=== PATIENT | female | born 1950 | race Caucasian/White ===

== ENCOUNTER 2017-05-07 08:08 | Inpatient (IN) | payer MEDICARE ==
[~2017-05-07] VITALS: Ht 152.4 cm; Wt 98.4 kg
--- NOTE | 2017-05-07 08:35 | NUR ---
PT TAKEN STRAIGHT BACK TO ER ROOM12 FOR SOB. @ BEDSIDE. IV ESTABLISHED, LABS DRAWN.
--- NOTE | 2017-05-07 08:40 | NUR ---
EKG MACHINE NOT WORKING. RT @ BEDSIDE. RT WILL BRING BACK ANOTHER EKG MACHINE.
[2017-05-07 09:20] LABS: ALBUMIN 5.2 g/dL (3.2-5.0); ALKALINE PHOSPHATASE 126 u/l (38-126); ANION GAP 17 (6-22 (CALC)); BILIRUBIN, TOTAL 0.8 mg/dL (0.0-1.4); BUN 12 mg/dL (8-23); BUN/CREATININE RATIO 15 (12-20 (CALC)); CALCIUM 10.8 mg/dL (8.4-10.2); CARBON DIOXIDE 29 mmol/l (22-30); CHLORIDE 102 mmol/l (95-108); CREATININE 0.8 mg/dL (0.5-1.0); GFR > 60 ML/MIN (>=60 (CALC)); GFR FOR AFR.AMER. > 60 ML/MIN (>=60 (CALC)); GLUCOSE 146 mg/dL (82-115); POTASSIUM 3.8 mmol/l (3.5-5.1); SGOT/AST 42 u/l (9-36); SGPT/ALT 44 u/l (11-66); SODIUM 144 mmol/l (137-146); TOTAL PROTEIN 8.9 g/dL (6.3-8.2)
[2017-05-07 09:32] LABS: MYOGLOBIN 31 ng/mL (0 - 62)
--- NOTE | 2017-05-07 09:39 | NUR ---
PT RESTING IN ER ROOM W/ @ BEDSIDE. BREATHING IN EVEN & UNLABORED. MONITORING BP.
--- NOTE | 2017-05-07 10:35 | NUR ---
MD @ BEDSIDE REVIEWING TESTING RESULTS. NO NEEDS/COMPLAINTS AT THIS TIME. CONTINUE TO MONITOR V/S
[2017-05-07 10:56] LABS: HEMATOCRIT 38.6 % (37.0-47.0); HEMOGLOBIN 13.2 g/dl (12.0-16.0); IMMATURE GRANULOCYTES 0.3 % (0.0-1.0); MEAN CORPUSCULAR HGB 29.1 pG CALC (26.0-32.0); MEAN CORPUSCULAR HGB CONC 34.2 g/L CALC (32.0-36.0); NEUT# 3.07 thou/uL (2.00-7.15); RED BLOOD COUNT 4.54 mill/uL (4.20-5.60); RED CELL DISTRI WIDTH 13.3 % (11.5-15.5)
--- NOTE | 2017-05-07 11:36 | NUR ---
PT WAITING ON ADMIT ORDERS AND ROOM ASSIGNMENT
[2017-05-07] MEDS ORDERED: OS-CAL 500500 M1 PO (11:39)
[2017-05-07] MEDS ORDERED: MULTIVITAMI1 PO (11:40)
[2017-05-07] MEDS ORDERED: FLEXERIL5 M1 PO (11:41)
[2017-05-07] MEDS ORDERED: TRAZODONE50 MG PO ×2 (11:42→11:43)
[2017-05-07] MEDS ORDERED: SM MELATONIN5 MG PO (11:42)
[2017-05-07] MEDS ORDERED: COREG25 MG PO (11:44)
[2017-05-07] MEDS ORDERED: MECLIZINE25 MG PO (11:45)
[2017-05-07] MEDS ORDERED: BUSPIRONE HCL5 MG PO (11:45)
[2017-05-07] MEDS ORDERED: ULTRAM50 M1 PO (11:46)
[2017-05-07] MEDS ORDERED: PROMETHAZINE12.5 MG PO (11:46)
[2017-05-07] MEDS ORDERED: PROPRANOLOL80 M1 PO (11:48)
[2017-05-07] MEDS ORDERED: VICTOZA18 MG/3 ML SC (11:49)
[2017-05-07] MEDS ORDERED: LEVEMIR FL100 UNIT/M SC (11:49)
--- NOTE | 2017-05-07 12:01 | NUR ---
ROSAAR PRINTED TO [id number].
--- NOTE | 2017-05-07 12:46 | NUR ---
Admission Note Report Given to: MJ Transported by: Wheelchair X Stretcher Transported with: X Nurse Transporter X Patent IV O2 X Baseball Pitcher
--- NOTE | 2017-05-07 13:02 | NUR ---
PT. ARRIVED TO FLOOR VIA STRETCHER ACCOMPANIED BY ED NURSE, PT.AMBULATED TO STANDING SCALE AND TO BED. PT.ORIENTED TO ROOM,CALL SYSTEM, LIGHTS, TV, CALLING FOR ASSISTANCE. V/S BEING ASSESSED. WILL F/UP WITH MEDICAITONS ORDERED AND FULL ASSESSMENT.
[2017-05-07 13:05] VITALS: BP 144/64
[2017-05-07] MEDS ORDERED: PEPCID20 MG PO (13:08)
[2017-05-07] MEDS ORDERED: LOSARTAN POT100 MG PO (13:08)
[2017-05-07] MEDS ORDERED: PAROXETINE25 MG PO (13:09)
[2017-05-07] MEDS ORDERED: REQUIP0.5 MG PO (13:10)
--- NOTE | 2017-05-07 13:10 | NUR ---
PT TRANSFERRED TO [facility] 274 VIA STRETCHER WITH TELE AND W/OUT INCIDENT. PT IN STABLE CONDITION. RN @ BEDSIDE.
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
[2017-05-07 15:41] VITALS: BP 137/64
--- NOTE | 2017-05-07 17:35 | NUR ---
PT.CALLED TO REPORT THAT SHE HAD VOMITED AND NEEDED ANOTHER EMESIS BAG. UPON ENTERING ROOM I FOUND AN EMESIS BAG IN THE TRASH CAN WITH 800CC OF YELLOW EMESIS WITH CHUNKS OF FOOD. I DISCUSSED THIS W/GEORGE WHO IMMEDIATELY PLACED PT. ON NPO DIET/ALL FLUIDS WERE REMOVED FROM ROOM AND PT.WAS INSTRUCTED NOT TO EAT OR DRINK. IS AT BS AND CALL LIGHT IS W/IN REACH
--- NOTE | 2017-05-07 17:53 | NUR ---
PT C/O NAUSEA. MEDICATED WITH PHENERGAN 12.5 MG IV. WILL CONTINUE TO MONITOR.
--- NOTE | 2017-05-07 19:00 | NUR ---
RECEIVED CHANGE OF SHIFT REPORT FROM SHANEL HIGH. PATIENT LYING IN BED AND APPEARS NOT TO BE IN ANY APPARENT ACUTE DISTRESS OR DISCOMFORT. PATIENT DENIES PAIN. WILL CONTINUE TO MONITOR.
[2017-05-07 19:20] VITALS: BP 161/82
--- NOTE | 2017-05-07 21:00 | NUR ---
PATIENT STATES THAT HER STOMACH IS FEELING MUCH BETTER. MEDICATION IS EFFECTIVE.
[2017-05-07 23:35] VITALS: BP 146/84
[2017-05-08] VITALS (7 sets, daily range): BP systolic 147–183; BP diastolic 74–89
--- NOTE | 2017-05-08 | NUR ---
PATIENT LYING QUIETLY IN BED AND APPEARS TO BE ASLEEP. NO APPARENT ACUTE DISTRESS OR DISCOMFORT NOTED.
--- NOTE | 2017-05-08 04:00 | NUR ---
NO APPARENT ACUTE CHANGES NOTED IN PT'S CONDITION.
[2017-05-08 05:41] LABS: HEMATOCRIT 36.5 % (37.0-47.0); HEMOGLOBIN 12.2 g/dl (12.0-16.0); IMMATURE GRANULOCYTES 0.2 % (0.0-1.0); MEAN CELL VOLUME 85.9 fL CALC (80.0-100.0); MEAN CORPUSCULAR HGB 28.7 pG CALC (26.0-32.0); MEAN CORPUSCULAR HGB CONC 33.4 g/L CALC (32.0-36.0); NEUT# 3.04 thou/uL (2.00-7.15); RED BLOOD COUNT 4.25 mill/uL (4.20-5.60); RED CELL DISTRI WIDTH 13.3 % (11.5-15.5)
[2017-05-08 06:05] LABS: ANION GAP 16 (6-22 (CALC)); BUN 13 mg/dL (8-23); BUN/CREATININE RATIO 16 (12-20 (CALC)); CALCIUM 10.3 mg/dL (8.4-10.2); CARBON DIOXIDE 26 mmol/l (22-30); CHLORIDE 105 mmol/l (95-108); CREATININE 0.8 mg/dL (0.5-1.0); GFR > 60 ML/MIN (>=60 (CALC)); GFR FOR AFR.AMER. > 60 ML/MIN (>=60 (CALC)); GLUCOSE 125 mg/dL (82-115); MAGNESIUM 1.7 mg/dL (1.6-2.3); POTASSIUM 4.1 mmol/l (3.5-5.1); SODIUM 143 mmol/l (137-146)
--- NOTE | 2017-05-08 07:00 | NUR ---
SHIFT CHANGE REPORT FROM TWAN, PT AWAKE ALERT AND ORIENTED, C/O MILD HEADACHE AT THIS TIME AND REQUESTING ORAL INTAKE, ADVISED MD WILL BE CONTACTED FOR MEAL STATUS CHANGE, IVF NFUSING. MARILEE NOTIFIED OF PT'S CONCERNS AND ADDRESSED.
--- NOTE | 2017-05-08 15:19 | NUR ---
PT INFORMED SHE WONT BE GOING HOME TODAY STATED SHE WAS TOLD EARLIER BY MD, HAS MANY QUESTIONS TO WHY SHE WAS TOLD DIFFERENTLY FROM WHAT SHE IS TOLD NOW, SPOUSE ALSO DISPLEASED TO HEAR THE NEW CHANGE AND WANTS TO LEAVE AMA IF NEEDS BE. ADVISED WILL HAVE CARETAKER ADDRESS SITUATION DANAE.
[2017-05-08] MEDS ORDERED: AMLODIPINE BESYL5 MG PO (15:48)
--- NOTE | 2017-05-08 17:53 | NUR ---
Discharge instructions given. Patient verbalizes understanding of same. Discharged in good condition via Wheelchair to Home with spouse. All belongings sent with pt.
== END 2017-05-08 17:48 | disposition home or self-care (01) | DRG 305 ==
LOC: ED 08:08 → ED-I 11:26 → ED 12:01 → MS2 12:02
PROVIDERS: Emergency Medicine; Nurse Practitioner Family; ADMIT Internal Medicine; ATTEND Internal Medicine
DX: I16.0 Hypertensive urgency (principal); E11.9 Type 2 diabetes mellitus without complications; I10 Essential (primary) hypertension; F41.1 Generalized anxiety disorder; G25.81 Restless legs syndrome; Z79.4 Long term (current) use of insulin; Z91.14 Patient's other noncompliance with medication regimen

== ENCOUNTER 2018-06-04 05:57 | Emergency (ER) | payer MEDICARE ==
[~2018-06-04] VITALS: Ht 167.6 cm; Wt 70.4 kg
[~2018-06-04 05:57] MED LIST: AMITRIPTYLIN25 MG PO; AMITRIPTYLIN50 MG PO; AMLODIPINE BESYL5 MG PO; AMLODIPINE5 MG PO; BUSPIRONE HCL5 MG PO; BUSPIRONE10 MG PO; CENTRUM SILVER1 TA1 PO; COREG25 MG PO; CYCLOBENZAPR10 MG PO; FLEXERIL5 M1 PO; GLIMEPIRIDE4 MG PO; INDERAL LA120 M1 PO; LEVEMIR FL100 UNIT/M SC; LEXAPRO20 MG PO; LOSARTAN POT100 MG PO; MECLIZINE25 MG PO; MELATONIN10 M3 PO; MULTIVITAMI1 PO; OMEPRAZOLE PO; OS-CAL 500500 M1 PO; PAROXETINE25 MG PO; PAXIL PO; PEPCID20 MG PO; PIOGLITAZONE HC15 MG PO; PROMETHAZINE12.5 MG PO; PROPRANOLOL80 M1 PO; REQUIP PO; REQUIP0.5 MG PO; ROPINIROLE1 MG PO; SM MELATONIN5 MG PO; TRAZODONE50 MG PO; TRESIBA FL100 UNIT/M IJ; TRESIBA FL200 UNIT/M IJ; TRESIBA FL200 UNIT/M SC; ULTRAM50 M1 PO; VICTOZA18 MG/3 ML SC; ZETIA10 MG PO; [UNRECOGNIZED DRUG - OTHER] PO
[2018-06-04 07:00] LABS: HEMATOCRIT 32.6 % (37.0-47.0); HEMOGLOBIN 10.9 g/dl (12.0-16.0); IMMATURE GRANULOCYTES 0.5 % (0.0-5.0); MEAN CELL VOLUME 83.4 fL CALC (80.0-100.0); MEAN CORPUSCULAR HGB 27.9 pG CALC (26.0-32.0); MEAN CORPUSCULAR HGB CONC 33.4 g/L CALC (32.0-36.0); NEUT# 9.73 thou/uL (2.00-7.15); RED BLOOD COUNT 3.91 mill/uL (4.20-5.60); RED CELL DISTRI WIDTH 13.2 % (11.5-15.5)
[2018-06-04 07:06] LABS: ALBUMIN 4.3 g/dL (3.2-5.0); ALKALINE PHOSPHATASE 191 u/l (38-126); ANION GAP 18 (6-22 (CALC)); BILIRUBIN, TOTAL 0.6 mg/dL (0.0-1.4); BUN 11 mg/dL (8-23); BUN/CREATININE RATIO 13 (12-20 (CALC)); CARBON DIOXIDE 26 mmol/l (22-30); CHLORIDE 90 mmol/l (95-108); CREATININE 0.8 mg/dL (0.5-1.0); GFR > 60 ML/MIN (>=60 (CALC)); GFR FOR AFR.AMER. > 60 ML/MIN (>=60 (CALC)); POTASSIUM 4.6 mmol/l (3.5-5.1); SGOT/AST 90 u/l (9-36); SODIUM 129 mmol/l (137-146); TOTAL PROTEIN 7.6 g/dL (6.3-8.2)
[2018-06-04 10:16] VITALS: BP 155/64
== END 2018-06-04 10:14 | disposition short-term general hospital (02) ==
LOC: ED 05:57
PROVIDERS: Family Medicine
DX: I26.99 Other pulmonary embolism without acute cor pulmonale (principal); R05 Cough; R09.81 Nasal congestion
CPT/HCPCS: J0131; J1650; J3475; Q9967

== ENCOUNTER 2018-08-17 09:00 | Outpatient (RCR) | payer MEDICARE ==
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
[~2018-08-17 09:00] MED LIST changes: +BUSPAR10 MG PO; +CLONAZEPAM0.5 M1 PO; +FUROSEMIDE40 MG PO; +OLMESARTAN MEDO20 MG PO; +TRESIBA FL200 UNIT/M IM
[2018-08-17 10:38] VITALS: BP 142/84
[2018-09-08] MEDS ORDERED: CYMBALTA30 MG PO (12:06)
[2018-09-08] MEDS ORDERED: NEURONTIN300 MG PO (12:07)
[2018-09-08] MEDS ORDERED: LOPID600 MG PO (12:08)
[2018-09-08] MEDS ORDERED: FLEXERIL PO (12:11)
[2018-09-08] MEDS ORDERED: TRAZODONE50 MG PO (12:13)
[2018-09-23] MEDS ORDERED: GLIMEPIRIDE2 MG PO (09:03)
[2018-09-23] MEDS ORDERED: GABAPENTIN100 MG PO (09:03)
[2018-09-23] MEDS ORDERED: AMITRIPTYLIN25 MG PO (09:03)
[2018-09-23] MEDS ORDERED: VICTOZA18 MG/3 ML SC (09:03)
[2018-09-23] MEDS ORDERED: CYMBALTA30 MG PO (09:04)
[2018-09-23] MEDS ORDERED: CLONAZEPAM0.5 M1 PO (09:04)
[2018-09-23] MEDS ORDERED: BL GAS RELIE125 MG PO (09:05)
== END 2018-08-26 23:59 | disposition home or self-care (01) ==
LOC: SLIP3 09:00
PROVIDERS: ATTEND Specialist
DX: F33.1 Major depressive disorder, recurrent, moderate (principal); F41.1 Generalized anxiety disorder

== ENCOUNTER 2018-09-24 20:55 | Emergency (ER) | payer MEDICARE ==
[~2018-09-24] VITALS: Ht 167.6 cm; Wt 83.6 kg
[~2018-09-24 20:55] MED LIST changes: +BL GAS RELIE125 MG PO; +CYMBALTA30 MG PO; +FLEXERIL PO; +GABAPENTIN100 MG PO; +GLIMEPIRIDE2 MG PO; +LOPID600 MG PO; +NEURONTIN300 MG PO
[2018-09-24 21:40] LABS: HEMATOCRIT 37.3 % (37.0-47.0); HEMOGLOBIN 12.1 g/dl (12.0-16.0); IMMATURE GRANULOCYTES 0.3 % (0.0-5.0); MEAN CORPUSCULAR HGB 27.3 pG CALC (26.0-32.0); MEAN CORPUSCULAR HGB CONC 32.4 g/L CALC (32.0-36.0); NEUT# 3.96 thou/uL (2.00-7.15); RED BLOOD COUNT 4.44 mill/uL (4.20-5.60); RED CELL DISTRI WIDTH 13.4 % (11.5-15.5)
[2018-09-24 21:55] LABS: ALKALINE PHOSPHATASE 149 u/l (38-126); AMYLASE 42 u/l (30-110); BILIRUBIN, TOTAL 0.4 mg/dL (0.0-1.4); BUN 10 mg/dL (8-23); BUN/CREATININE RATIO 13 (12-20 (CALC)); CARBON DIOXIDE 28 mmol/l (22-30); CHLORIDE 98 mmol/l (95-108); CREATININE 0.8 mg/dL (0.5-1.0); GFR > 60 ML/MIN (>=60 (CALC)); GFR FOR AFR.AMER. > 60 ML/MIN (>=60 (CALC)); LIPASE 79 u/l (23-300); POTASSIUM 3.7 mmol/l (3.5-5.1); SGOT/AST 131 u/l (9-36); TOTAL PROTEIN 8.4 g/dL (6.3-8.2)
[2018-09-24 21:57] LABS: ANION GAP 17 (6-22 (CALC)); SODIUM 139 mmol/l (137-146)
[2018-09-24 23:13] LABS: URINE BILIRUBIN - DIPSTICK NEGATIVE (NEGATIVE); URINE BLOOD DIPSTICK NEGATIVE (NEGATIVE); URINE COLOR YELLOW; URINE GLUCOSE - DIPSTICK 100 mg/dL (NEGATIVE); URINE KETONE NEGATIVE (NEGATIVE); URINE NITRITE - DIPSTICK NEGATIVE (Negative); URINE PH 6.5 (4.5-8.0); URINE PROTEIN - DIPSTICK NEGATIVE (NEG-TRACE); URINE SPECIFIC GRAVITY <=1.005; URINE UROBILINOGEN - DIPSTICK 0.2 E.U./dL (0.2)
[2018-09-24 23:18] LABS: URINE LEUK ESTERASE SMALL (NEGATIVE)
[2018-09-24 23:21] LABS: URINE BACTERIA MODERATE hpf; URINE RBC 0-2 RBC/hpf (0-5); URINE SQUAMOUS EPITHELIAL CELL MODERATE EPI/hpf (0-FEW); URINE YEAST RARE hpf
[2018-09-25] MEDS ORDERED: PHENERGAN25 MG/TAB PO (00:02)
[2018-09-25] MEDS ORDERED: BACTRIM DS1 TAB PO (00:02)
[2018-09-25] MEDS ORDERED: TORADOL PO (00:02)
[2018-09-25 00:15] VITALS: BP 148/86
== END 2018-09-25 00:17 | disposition home or self-care (01) ==
LOC: ED 20:55
PROVIDERS: Family Medicine
DX: K29.70 Gastritis, unspecified, without bleeding (principal); E11.9 Type 2 diabetes mellitus without complications; I10 Essential (primary) hypertension; K21.9 Gastro-esophageal reflux disease without esophagitis
CPT/HCPCS: Q9967

== ENCOUNTER 2018-10-05 07:47 | Day surgery (SDC) | payer MEDICARE ==
[~2018-10-05 07:47] MED LIST changes: +BACTRIM DS1 TAB PO; +DULCOLAX5 MG PO; +LISINOPRIL2.5 MG PO; +PHENERGAN25 MG/TAB PO; +TORADOL PO
[2018-10-05 11:31] VITALS: BP 156/73
== END 2018-10-05 11:45 | disposition home or self-care (01) ==
LOC: ENDO 07:47 → ORM 10:30 → ENDO 10:30
PROVIDERS: ATTEND Surgery
PROC: 0DB48ZX Excision of Esophagogastric Junction, Via Natural or Artificial Opening Endoscopic, Diagnostic (ICD-10-PCS; principal; 2018-10-05)
DX: K21.0 Gastro-esophageal reflux disease with esophagitis (principal); K29.50 Unspecified chronic gastritis without bleeding; K44.9 Diaphragmatic hernia without obstruction or gangrene; E11.9 Type 2 diabetes mellitus without complications

== ENCOUNTER 2019-03-06 15:12 | Emergency (ER) | payer MEDICARE ==
[~2019-03-06] VITALS: Ht 170.2 cm; Wt 65.0 kg
[2019-03-06] MEDS ORDERED: PAROXETINE10 MG PO (15:29)
[2019-03-06] MEDS ORDERED: COZAAR25 MG PO (15:29)
[2019-03-06] MEDS ORDERED: OMEPRAZOLE10 MG PO (15:30)
[2019-03-06 15:55] LABS: HEMATOCRIT 36.1 % (37.0-47.0); HEMOGLOBIN 11.9 g/dl (12.0-16.0); IMMATURE GRANULOCYTES 0.4 % (0.0-5.0); MEAN CELL VOLUME 79.2 fL CALC (80.0-100.0); MEAN CORPUSCULAR HGB 26.1 pG CALC (26.0-32.0); NEUT# 3.35 thou/uL (2.00-7.15); RED BLOOD COUNT 4.56 mill/uL (4.20-5.60); RED CELL DISTRI WIDTH 13.8 % (11.5-15.5)
[2019-03-06 16:12] LABS: ALBUMIN 4.5 g/dL (3.2-5.0); ALKALINE PHOSPHATASE 174 u/l (38-126); BILIRUBIN, TOTAL 0.5 mg/dL (0.0-1.4); BUN 14 mg/dL (8-23); BUN/CREATININE RATIO 17 (12-20 (CALC)); CHLORIDE 100 mmol/l (95-108); CREATININE 0.8 mg/dL (0.5-1.0); GFR > 60 ML/MIN (>=60 (CALC)); GFR FOR AFR.AMER. > 60 ML/MIN (>=60 (CALC)); POTASSIUM 4.4 mmol/l (3.5-5.1); SODIUM 137 mmol/l (137-146); TOTAL PROTEIN 7.3 g/dL (6.3-8.2)
[2019-03-06 16:14] LABS: URINE BILIRUBIN - DIPSTICK NEGATIVE (NEGATIVE); URINE BLOOD DIPSTICK NEGATIVE (NEGATIVE); URINE COLOR YELLOW; URINE GLUCOSE - DIPSTICK >=1000 mg/dL (NEGATIVE); URINE KETONE TRACE mg/dL (NEGATIVE); URINE LEUK ESTERASE NEGATIVE (NEGATIVE); URINE NITRITE - DIPSTICK NEGATIVE (Negative); URINE PH 5.5 (4.5-8.0); URINE PROTEIN - DIPSTICK NEGATIVE (NEG-TRACE); URINE SPECIFIC GRAVITY 1.015; URINE UROBILINOGEN - DIPSTICK 0.2 E.U./dL (0.2)
[2019-03-06 16:15] LABS: ANION GAP 19 (6-22 (CALC)); CARBON DIOXIDE 22 mmol/l (22-30); SGOT/AST 30 u/l (9-36)
[2019-03-06 16:24] LABS: MYOGLOBIN 24 ng/mL (0 - 62)
[2019-03-06 18:45] VITALS: BP 192/82
== END 2019-03-06 18:52 | disposition home or self-care (01) ==
LOC: ED 15:12
PROVIDERS: Emergency Medicine
DX: E11.65 Type 2 diabetes mellitus with hyperglycemia (principal); I10 Essential (primary) hypertension; Z79.4 Long term (current) use of insulin

== ENCOUNTER 2019-04-20 01:23 | Emergency (ER) | payer MEDICARE ==
[~2019-04-20] VITALS: Ht 170.2 cm; Wt 80.0 kg
[~2019-04-20 01:23] MED LIST changes: +COZAAR25 MG PO; +OMEPRAZOLE10 MG PO; +PAROXETINE10 MG PO
[2019-04-20 02:12] LABS: HEMATOCRIT 37.5 % (37.0-47.0); HEMOGLOBIN 12.4 g/dl (12.0-16.0); IMMATURE GRANULOCYTES 0.3 % (0.0-5.0); MEAN CELL VOLUME 80.8 fL CALC (80.0-100.0); MEAN CORPUSCULAR HGB 26.7 pG CALC (26.0-32.0); MEAN CORPUSCULAR HGB CONC 33.1 g/L CALC (32.0-36.0); NEUT# 8.1 thou/uL (2.00-7.15); RED BLOOD COUNT 4.64 mill/uL (4.20-5.60); RED CELL DISTRI WIDTH 14.3 % (11.5-15.5)
[2019-04-20 02:23] LABS: ALBUMIN 4.7 g/dL (3.2-5.0); ALKALINE PHOSPHATASE 164 u/l (38-126); ANION GAP 14 (6-22 (CALC)); BILIRUBIN, TOTAL 0.4 mg/dL (0.0-1.4); BUN 11 mg/dL (8-23); BUN/CREATININE RATIO 16 (12-20 (CALC)); CHLORIDE 99 mmol/l (95-108); CREATININE 0.7 mg/dL (0.5-1.0); GFR > 60 ML/MIN (>=60 (CALC)); GFR FOR AFR.AMER. > 60 ML/MIN (>=60 (CALC)); LIPASE 24 u/l (23-300); POTASSIUM 3.7 mmol/l (3.5-5.1); SGOT/AST 29 u/l (9-36); SODIUM 139 mmol/l (137-146)
[2019-04-20 02:30] LABS: CARBON DIOXIDE 30 mmol/l (22-30)
[2019-04-20] MEDS ORDERED: FIORICET PO (03:21)
[2019-04-20] MEDS ORDERED: ONDANSETRON4 MG PO (03:21)
[2019-04-20 04:05] VITALS: BP 175/82
== END 2019-04-20 04:05 | disposition home or self-care (01) ==
LOC: ED 01:23
DX: G43.909 Migraine, unspecified, not intractable, without status migrainosus (principal); E11.9 Type 2 diabetes mellitus without complications; I10 Essential (primary) hypertension; Z79.4 Long term (current) use of insulin

== ENCOUNTER 2020-09-10 10:24 | Emergency (ER) | payer MEDICARE ==
[~2020-09-10] VITALS: Ht 170.2 cm; Wt 70.0 kg
[~2020-09-10 10:24] MED LIST changes: +FIORICET PO; +ONDANSETRON4 MG PO
[2020-09-10 12:03] LABS: HEMATOCRIT 37.2 % (37.0-47.0); HEMOGLOBIN 12.4 g/dl (12.0-16.0); IMMATURE GRANULOCYTES 0.4 % (0.0-5.0); MEAN CELL VOLUME 82.5 fL CALC (80.0-100.0); MEAN CORPUSCULAR HGB 27.5 pG CALC (26.0-32.0); MEAN CORPUSCULAR HGB CONC 33.3 g/dL CAL (32.0-36.0); NEUT# 8.25 thou/uL (2.00-7.15); RED BLOOD COUNT 4.51 mill/uL (4.20-5.60); RED CELL DISTRI WIDTH 13.3 % (11.5-15.5)
[2020-09-10 12:28] LABS: ALBUMIN 4.8 g/dL (3.2-5.0); ALKALINE PHOSPHATASE 196 u/l (38-126); BUN 10 mg/dL (8-23); BUN/CREATININE RATIO 15 (12-20 (CALC)); CARBON DIOXIDE 26 mmol/l (22-30); CHLORIDE 91 mmol/l (95-108); CREATININE 0.7 mg/dL (0.5-1.0); GFR > 60 ML/MIN (>=60 (CALC)); GFR FOR AFR.AMER. > 60 ML/MIN (>=60 (CALC)); LIPASE 29 u/l (23-300); SGOT/AST 41 u/l (9-36); TOTAL PROTEIN 7.7 g/dL (6.3-8.2)
[2020-09-10 12:34] LABS: ANION GAP 18 (6-22 (CALC)); BILIRUBIN, TOTAL 0.8 mg/dL (0.0-1.4); POTASSIUM 4.5 mmol/l (3.5-5.1); SODIUM 130 mmol/l (137-146)
[2020-09-10 12:49] LABS: URINE BILIRUBIN - DIPSTICK NEGATIVE (NEGATIVE); URINE BLOOD DIPSTICK NEGATIVE (NEGATIVE); URINE COLOR YELLOW; URINE GLUCOSE - DIPSTICK >=1000 mg/dL (NEGATIVE); URINE KETONE TRACE mg/dL (NEGATIVE); URINE LEUK ESTERASE NEGATIVE (NEGATIVE); URINE NITRITE - DIPSTICK NEGATIVE (Negative); URINE PH 6.5 (4.5-8.0); URINE PROTEIN - DIPSTICK NEGATIVE (NEG-TRACE); URINE UROBILINOGEN - DIPSTICK 0.2 E.U./dL (0.2)
[2020-09-10] MEDS ORDERED: AMOX/K CLAV875 M1 PO (13:51)
[2020-09-10 14:00] VITALS: BP 185/87
[2020-09-10] MEDS ORDERED: LISINOPRIL20 M1 PO (14:09)
== END 2020-09-10 14:24 | disposition home or self-care (01) ==
LOC: ED 10:24
PROVIDERS: Family Medicine
DX: E11.65 Type 2 diabetes mellitus with hyperglycemia (principal); K06.8 Other specified disorders of gingiva and edentulous alveolar ridge; I10 Essential (primary) hypertension; K21.9 Gastro-esophageal reflux disease without esophagitis; F41.9 Anxiety disorder, unspecified; F32.9 Major depressive disorder, single episode, unspecified; Z79.4 Long term (current) use of insulin

== ENCOUNTER 2020-11-24 17:21 | Emergency (ER) | payer MEDICARE ==
[~2020-11-24] VITALS: Ht 170.2 cm; Wt 64.5 kg
[~2020-11-24 17:21] MED LIST changes: +AMOX/K CLAV875 M1 PO; +LISINOPRIL20 M1 PO; +TRESIBA FL100 UNIT/M SC; -TRESIBA FL200 UNIT/M IM
[2020-11-24 18:25] LABS: HEMATOCRIT 36.4 % (37.0-47.0); HEMOGLOBIN 12.2 g/dl (12.0-16.0); IMMATURE GRANULOCYTES 0.4 % (0.0-5.0); MEAN CELL VOLUME 80.5 fL CALC (80.0-100.0); MEAN CORPUSCULAR HGB CONC 33.5 g/dL CAL (32.0-36.0); NEUT# 4.73 thou/uL (2.00-7.15); RED BLOOD COUNT 4.52 mill/uL (4.20-5.60); RED CELL DISTRI WIDTH 12.6 % (11.5-15.5)
[2020-11-24 18:34] LABS: ALBUMIN 4.3 g/dL (3.2-5.0); ALKALINE PHOSPHATASE 157 u/l (38-126); ANION GAP 14 (6-22 (CALC)); BUN 13 mg/dL (8-23); BUN/CREATININE RATIO 17 (12-20 (CALC)); CARBON DIOXIDE 26 mmol/l (22-30); CHLORIDE 90 mmol/l (95-108); CREATININE 0.8 mg/dL (0.5-1.0); GFR > 60 ML/MIN (>=60 (CALC)); GFR FOR AFR.AMER. > 60 ML/MIN (>=60 (CALC)); SGOT/AST 46 u/l (9-36); SODIUM 127 mmol/l (137-146); TOTAL PROTEIN 7.5 g/dL (6.3-8.2)
[2020-11-24 18:37] LABS: BILIRUBIN, TOTAL 0.4 mg/dL (0.0-1.4)
[2020-11-24 18:46] LABS: MYOGLOBIN 20 ng/mL (0 - 62)
[2020-11-25 00:24] LABS: URINE BILIRUBIN - DIPSTICK NEGATIVE (NEGATIVE); URINE BLOOD DIPSTICK SMALL (NEGATIVE); URINE COLOR YELLOW; URINE GLUCOSE - DIPSTICK >=1000 mg/dL (NEGATIVE); URINE PH 5.5 (4.5-8.0); URINE PROTEIN - DIPSTICK TRACE mg/dL (NEG-TRACE); URINE UROBILINOGEN - DIPSTICK 0.2 E.U./dL (0.2)
[2020-11-25 00:25] LABS: URINE KETONE NEGATIVE (NEGATIVE); URINE LEUK ESTERASE MODERATE (NEGATIVE); URINE NITRITE - DIPSTICK NEGATIVE (Negative)
[2020-11-25 00:26] LABS: URINE BACTERIA MANY hpf; URINE EPITHELIAL CELLS MODERATE EPI/hpf (0-FEW); URINE WBC 50-100 WBC/hpf (0-5)
[2020-11-25] MEDS ORDERED: ZITHROMAX250 MG PO (04:05)
[2020-11-25] MEDS ORDERED: CIPROFLOXACN500 MG PO (04:05)
[2020-11-25] MEDS ORDERED: DECADRON6 MG PO (04:05)
[2020-11-25 04:17] VITALS: BP 141/69
== END 2020-11-25 04:49 | disposition home or self-care (01) ==
LOC: ED 17:21
PROVIDERS: Emergency Medicine
DX: U07.1 COVID-19 (principal); E11.65 Type 2 diabetes mellitus with hyperglycemia; N39.0 Urinary tract infection, site not specified; I10 Essential (primary) hypertension; F41.9 Anxiety disorder, unspecified; K21.9 Gastro-esophageal reflux disease without esophagitis; F32.9 Major depressive disorder, single episode, unspecified; Z79.4 Long term (current) use of insulin; Z79.899 Other long term (current) drug therapy
CPT/HCPCS: Q9967

== ENCOUNTER 2020-11-28 09:10 | Inpatient (IN) | payer MEDICARE ==
[~2020-11-28] VITALS: Ht 167.6 cm; Wt 66.0 kg
[~2020-11-28 09:10] MED LIST changes: +CIPROFLOXACN500 MG PO; +DECADRON6 MG PO; +ZITHROMAX250 MG PO
--- NOTE | 2020-11-28 09:10 | NUR ---
TO ROOM FOR TRIAGE
[2020-11-28 09:49] LABS: HEMATOCRIT 34.9 % (37.0-47.0); HEMOGLOBIN 11.5 g/dl (12.0-16.0); IMMATURE GRANULOCYTES 1.3 % (0.0-5.0); MEAN CELL VOLUME 80.6 fL CALC (80.0-100.0); MEAN CORPUSCULAR HGB 26.6 pG CALC (26.0-32.0); NEUT# 10.36 thou/uL (2.00-7.15); RED BLOOD COUNT 4.33 mill/uL (4.20-5.60); RED CELL DISTRI WIDTH 12.7 % (11.5-15.5)
[2020-11-28 10:05] LABS: ALBUMIN 4.1 g/dL (3.2-5.0); ALKALINE PHOSPHATASE 145 u/l (38-126); ANION GAP 15 (6-22 (CALC)); BILIRUBIN, TOTAL 0.5 mg/dL (0.0-1.4); BUN 13 mg/dL (8-23); BUN/CREATININE RATIO 18 (12-20 (CALC)); CARBON DIOXIDE 24 mmol/l (22-30); CHLORIDE 94 mmol/l (95-108); CREATININE 0.7 mg/dL (0.5-1.0); GFR > 60 ML/MIN (>=60 (CALC)); GFR FOR AFR.AMER. > 60 ML/MIN (>=60 (CALC)); POTASSIUM 3.5 mmol/l (3.5-5.1); SGOT/AST 34 u/l (9-36); SODIUM 130 mmol/l (137-146); TOTAL PROTEIN 7.9 g/dL (6.3-8.2)
[2020-11-28 10:16] LABS: MYOGLOBIN 36 ng/mL (0 - 62)
--- NOTE | 2020-11-28 10:43 | NUR ---
PATIENT REEDUCATED TO NEED FOR URINE COLLECTION
--- NOTE | 2020-11-28 11:53 | NUR ---
ATTEMPT TO CALL REPORT, NURSE TO RETURN CALL
--- NOTE | 2020-11-28 12:01 | NUR ---
REPORT RECEIVED FROM SHANEL DAVIS
--- NOTE | 2020-11-28 12:04 | NUR ---
REPORT GIVEN TO FLOOR
--- NOTE | 2020-11-28 12:11 | NUR ---
patient belonging list completed
--- NOTE | 2020-11-28 12:30 | NUR ---
PT ARRIVED TO MED/SURG ROOM 266 IN STABLE CONDITION VIA STRETCHER ACCOMPANIED BY SHANEL FINE;PT ASSISTED TO BEDSIDE WITH X1 PERSON ASSIST AND STEADY GAIT;PT A&O X3, ORIENTED TO ROOM AND CALL LIGHT SYSTEM;WT AND VS OBTAINED BY TROY COPPOLA;PT REPORTS SOB AND COUGH X1 WEEK AFTER COVID19 DX ON 11/24/20;PT DENIES ANY CURRENT PAIN OR DISCOMFORTS,PAIN SCALE AND REPORTING EDUCATED;RESPIRATIONS SHALLOW ON O2 @ 2L VIA NC,PT IS NON-DEPENDENT ON OXYGEN;CLEAR/DIMINISHED LUNG SOUNDS NOTED,NON-PRODUCTIVE COUGH NOTED;ABDOMEN SOFT ON PALPATION AND ACTIVE IN ALL 4 QUADRANTS;STRONG PEDAL PULSES;SKIN INTACT; TELE MONITORING IN PLACE;#20G TO LAC FLUSHED AND PATENT AND NS STARTED AT 75ML/HR PER ORDER;ACCUCHECK 304; FALL AND ALLERGY BAND APPLIED AT THIS TIME;PT REMAINS IN AIR/CONTACT PRECAUTIONS DUE TO COVID19 DX;PT DENIES ANY ADDITIONAL NEEDS AND IS ENCOURAGED TO CALL FOR ASSISTANCE IF NEEDED;FALL PRECAUTIONS IN PLACE WITH BED IN THE LOWEST POSITION AND CALL LIGHT IN REACH;WILL CONTINUE TO MONITOR
[2020-11-28 12:31] VITALS: BP 146/68
--- NOTE | 2020-11-28 13:50 | NUR ---
PT RESTING IN SEMI FOWLERS POSITION;RESPIRATIONS EVEN AND UNLABORED ON O2 @ 2L VIA NC;I.S. PROVIDED AND PT EDUCATED ON USE,ENCOURAGED USE 10X PER HOUR;PT DENIES ANY ADDITIONAL NEEDS;ENCOURAGED TO CALL FOR ASSISTANCE IF NEEDED;CALL LIGHT IN REACH;WILL CONTINUE TO MONITOR
[2020-11-28] MEDS ORDERED: LISINOPRIL20 M1 PO (14:32)
[2020-11-28] MEDS ORDERED: LIPITOR20 M1 PO (14:32)
[2020-11-28] MEDS ORDERED: DULOXETINE HCL30 MG PO (14:33)
[2020-11-28] MEDS ORDERED: OMEPRAZOLE DR40 MG PO (14:34)
[2020-11-28 14:54] LABS: URINE BILIRUBIN - DIPSTICK NEGATIVE (NEGATIVE); URINE BLOOD DIPSTICK NEGATIVE (NEGATIVE); URINE COLOR YELLOW; URINE GLUCOSE - DIPSTICK >=1000 mg/dL (NEGATIVE); URINE KETONE TRACE mg/dL (NEGATIVE); URINE LEUK ESTERASE NEGATIVE (NEGATIVE); URINE PH 6.5 (4.5-8.0); URINE PROTEIN - DIPSTICK TRACE mg/dL (NEG-TRACE); URINE SPECIFIC GRAVITY 1.015; URINE UROBILINOGEN - DIPSTICK 0.2 E.U./dL (0.2)
[2020-11-28 14:56] LABS: URINE NITRITE - DIPSTICK NEGATIVE (Negative)
[2020-11-28 15:40] VITALS: BP 150/63
--- NOTE | 2020-11-28 15:45 | NUR ---
PT RESTING IN SEMI FOWLERS POSITION WATCHING TV;RESPIRATIONS EVEN AND UNLABORED ON O2 @ 2L VIA NC;PT DENIES ANY CURRENT PAIN OR DISCOMFORTS;TELE MONITORING IN PLACE;#20G TO LAC INFUSING NS @75ML/HR PER ORDER;ACCUCHECK 342;PT DENIES ANY ADDITIONAL NEEDS AT THIS TIME AND IS ENCOURAGED TO CALL FOR ASSISTANCE IF NEEDED;CALL LIGHT IN REACH;WILL CONTINUE TO MONITOR
[2020-11-28] MEDS ORDERED: ALPRAZOLAM PO (15:54)
[2020-11-28] MEDS ORDERED: TRAMADOL HCL PO (15:56)
[2020-11-28 19:00] VITALS: BP 123/56
--- NOTE | 2020-11-28 20:00 | NUR ---
PATIENT RESTING IN BED AT THIS TIME WITH O2 VIA NASAL CANNULA IN PLACE AT 2LPM. O2 SAT AT THIS TIME IS 96%. PATIENT IS AWAKE ALERT AND ORIENTEDX3. PATIENT ON ISOLATION IN NEG PRESSURE ROOM FOR COVID. PATIENT WITH TELE MONITOR IN PLACE-LAST READING SR-70'S. IVF NS PATENT AND INFUSING VIA LAC SITE AT 75CC/HR. SITE REMAINS HEALTHY AT THIS TIME. PATIENT WITH NON-PRODUCTIVE COUGH. ENCOURAGED USE OF IS Q1H WHILE AWAKE IN REPS OF 10. LUNGS ARE CLEAR. ACCU=-CHECK TONIGHT IS 282-WILL COVER WITH HUMALOG 5UNITS PER COVERAGE SCHEDULE. LEVEMIR 40UNITS GIVEN SCHEDULED. PROVIDED WITH HS SNACK-VANILLA PUDDING. SAFETY PRECAUTIONS REINFORCED. CALL LIGHT IN REACH. WILL CONT TO MONITOR.
[2020-11-29] VITALS: BP 137/60
--- NOTE | 2020-11-29 01:00 | NUR ---
PATIENT RESTING IN BED WITH O2 VIA NASAL CANNULA IN PLACE. TELE MONITOR IN PLACE. IVF NS PATENT AND INFUSING VIA LAC @75CC/HR. CALL LIGHT IN REACH. WILL CONT TO MONITOR.
[2020-11-29 04:00] VITALS: BP 140/70
--- NOTE | 2020-11-29 04:09 | NUR ---
PATIENT RESTING IN BED WITH O2 VIA NASAL CANNULA IN PLACE. EYES ARE CLOSED.RESPS ARE EVEN AND UNLABORED. IVF PATENT AND INFUSING VIA LAC SITE AT 75CC/HR. TELE MONITOR IN PLACE. CALL LIGHT IN REACH. WILL CONT TO MONITOR.
[2020-11-29 06:08] LABS: HEMATOCRIT 32.6 % (37.0-47.0); HEMOGLOBIN 10.7 g/dl (12.0-16.0); IMMATURE GRANULOCYTES 1.8 % (0.0-5.0); MEAN CELL VOLUME 81.3 fL CALC (80.0-100.0); MEAN CORPUSCULAR HGB 26.7 pG CALC (26.0-32.0); MEAN CORPUSCULAR HGB CONC 32.8 g/dL CAL (32.0-36.0); NEUT# 7.08 thou/uL (2.00-7.15); RED BLOOD COUNT 4.01 mill/uL (4.20-5.60); RED CELL DISTRI WIDTH 12.7 % (11.5-15.5)
[2020-11-29 06:37] LABS: ALBUMIN 3.3 g/dL (3.2-5.0); ALKALINE PHOSPHATASE 123 u/l (38-126); ANION GAP 14 (6-22 (CALC)); BUN 13 mg/dL (8-23); BUN/CREATININE RATIO 25 (12-20 (CALC)); C-REACTIVE PROTEIN 8.9 mg/dL (0-0.9); CARBON DIOXIDE 22 mmol/l (22-30); CHLORIDE 101 mmol/l (95-108); CREATININE 0.5 mg/dL (0.5-1.0); GFR > 60 ML/MIN (>=60 (CALC)); GFR FOR AFR.AMER. > 60 ML/MIN (>=60 (CALC)); POTASSIUM 4.4 mmol/l (3.5-5.1); SGOT/AST 43 u/l (9-36); SODIUM 133 mmol/l (137-146); TOTAL PROTEIN 6.3 g/dL (6.3-8.2)
[2020-11-29 08:00] VITALS: BP 144/66
--- NOTE | 2020-11-29 09:30 | NUR ---
PT SEEN IN ROOM 266, NEGATIVE PRESSURE ROOM PER COVID POSITIVE. PT IS ALERT AND ORIENTED X 3, AMBULATORY NORMALLY. LUNGS CLEAR APEXES BUT SLIGHT COARSENESS HEARD IN BILATERAL BASES. PT WITH 2 LPM NC KEEPS SATS IN THE UPPER 90s. NO DISTRESS, PT DICKERSON.
[2020-11-29 10:55] VITALS: BP 139/58
--- NOTE | 2020-11-29 13:39 | NUR ---
PT PROVIDED ABX ORDERED, CONTINUES AT REST IN THE BED IN NO ACUTE DISTRESS. PT EDUCATED ON USE OF REMDESIVIR AND ANTIBIOTICS ROUTINE TREATMENTS FOR COVID-19.
[2020-11-29 15:37] VITALS: BP 138/64
--- NOTE | 2020-11-29 16:44 | NUR ---
PT HAS RECEIVED FIRST DOSE OF REMDESIVIR. PT REMAINS AT REST IN THE BED WITHOUT COMPLAINT OR EVIDENCE OF DISTRESS.
[2020-11-29 19:00] VITALS: BP 145/64
--- NOTE | 2020-11-29 19:05 | NUR ---
PATIENT RESTING IN BED WATCHING TV. RESP EVEN AND UNLABORED, 2L VIA NC. IV INFUSING FLUIDS. FALL AND SAFTEY PRECAUTIONS IN PLACE. NO S/S OF DISTRESS NOTED. ALERT AND ORIENTED X 4. PLAN OF CARE DISCUSSED. PATIENT INFORMED TO CALL WITH ANY QUESTIONS OR CONCERNS.
--- NOTE | 2020-11-29 20:52 | NUR ---
PATIENT DECLINED BEDTIME SNACK.
[2020-11-30] VITALS: BP 138/61
--- NOTE | 2020-11-30 03:54 | NUR ---
PATIENT RESTING WITH EYES CLOSED. RESP EVEN AND UNLABORED. NO S/S OF DISTRESS IS NOTED. FALL AND SAFTEY PRECAUTIONS IN PLACE.
[2020-11-30 04:00] VITALS: BP 145/68
[2020-11-30 04:54] LABS: HEMATOCRIT 30.9 % (37.0-47.0); HEMOGLOBIN 10.1 g/dl (12.0-16.0); IMMATURE GRANULOCYTES 4.3 % (0.0-5.0); MEAN CELL VOLUME 81.1 fL CALC (80.0-100.0); MEAN CORPUSCULAR HGB 26.5 pG CALC (26.0-32.0); MEAN CORPUSCULAR HGB CONC 32.7 g/dL CAL (32.0-36.0); NEUT# 6.15 thou/uL (2.00-7.15); RED BLOOD COUNT 3.81 mill/uL (4.20-5.60)
[2020-11-30 05:11] LABS: ALBUMIN 3.1 g/dL (3.2-5.0); ALKALINE PHOSPHATASE 124 u/l (38-126); ANION GAP 12 (6-22 (CALC)); BUN 15 mg/dL (8-23); BUN/CREATININE RATIO 27 (12-20 (CALC)); CARBON DIOXIDE 23 mmol/l (22-30); CHLORIDE 104 mmol/l (95-108); CREATININE 0.5 mg/dL (0.5-1.0); GFR > 60 ML/MIN (>=60 (CALC)); GFR FOR AFR.AMER. > 60 ML/MIN (>=60 (CALC)); POTASSIUM 4.1 mmol/l (3.5-5.1); SGOT/AST 57 u/l (9-36); SODIUM 135 mmol/l (137-146); TOTAL PROTEIN 5.8 g/dL (6.3-8.2)
--- NOTE | 2020-11-30 08:41 | NUR ---
PT SITTING IN BED. A&O X4. NO DISTRESS NOTED. O2 VIA NC @2L SUSTAINING 98% O2 TITRATED DOWN TO 1L, O2 REMAINING SUSTAINING 97%, WILL MONITOR O2 LEVEL FOR ANY SUPPLEMENTAL/TITRATION NEEDS. BREATH SOUNDS CLEAR AND DIMINISHED. IS DEVICE AT BEDSIDE, PT ABLE TO ACHIEVE 500 ML X4 REPITITIONS, GOAL SET AT 1000 ML. PT DEMONSTRATING PROPER USE OF DEVICE, PT ENCOURAGED TO USE IS DEVICE Q1 HOUR WHILE AWAKE. PT VERBALIZED UNDERSTANDING. ACTIVE BOWEL SOUNDS X4 QUADRANTS. NO EDEMA TO BLE. #20LAC WITH IVF INFUSING PER MAR ORDERS. ASSESSMENT COMPLETED. DISCUSSED POC. CALL LIGHT AND PERSONAL BELONGINGS WITHIN REACH.
[2020-11-30 11:15] VITALS: BP 163/72
--- NOTE | 2020-11-30 12:17 | NUR ---
PT SITTING IN RECLINER, NO DISTRESS OR NEEDS AT THIS TIME. CALL LIGHT WITHIN REACH.
[2020-11-30 20:00] VITALS: BP 139/58
--- NOTE | 2020-11-30 20:01 | NUR ---
PATIENT IN BED, SEMI-FOWLERS POSITION. O2 2L N/C. DENIES PAIN. ON TELEMETRY. HEART RATE REGULAR. LUNGS SOUNDS CLEAR UPPER LOBES AND CRACKLES LOWER LOBES B/L. BS+ ALL QUADRANTS. PEDAL PULSES +2 B/L. VAD #22 RW PATENT AND INFUSING IVF AT 20ML/HR (KVO), WITH DRESSING CLEAN DRY INTACT. FALL PRECAUTIONS MAINTAINED. BED IN LOW POSITION. CALL LIGHT WITHIN REACH.
[2020-12-01] VITALS: BP 122/61
[2020-12-01 04:00] VITALS: BP 130/47
[2020-12-01 05:07] LABS: BASO% 1 % (0-3); EOS% 1 % (0-8); HEMATOCRIT 32.7 % (37.0-47.0); HEMOGLOBIN 10.4 g/dl (12.0-16.0); LYMPH% 43 % (15-41); MEAN CELL VOLUME 82.6 fL CALC (80.0-100.0); MEAN CORPUSCULAR HGB 26.3 pG CALC (26.0-32.0); MEAN CORPUSCULAR HGB CONC 31.8 g/dL CAL (32.0-36.0); MONO% 8 % (2-13); NEUT# 4.41 thou/uL (2.00-7.15); NEUT% 41 % (42-76); RED BLOOD COUNT 3.96 mill/uL (4.20-5.60); RED CELL DISTRI WIDTH 13.1 % (11.5-15.5)
[2020-12-01 05:08] LABS: IMMATURE GRANULOCYTES 6.1 % (0.0-5.0); PLATELET COUNT 616 thou/uL (130-400)
[2020-12-01 05:30] LABS: ALBUMIN 3.1 g/dL (3.2-5.0); ALKALINE PHOSPHATASE 131 u/l (38-126); ANION GAP 10 (6-22 (CALC)); BUN 13 mg/dL (8-23); BUN/CREATININE RATIO 20 (12-20 (CALC)); C-REACTIVE PROTEIN 2.6 mg/dL (0-0.9); CHLORIDE 103 mmol/l (95-108); CREATININE 0.7 mg/dL (0.5-1.0); GFR > 60 ML/MIN (>=60 (CALC)); GFR FOR AFR.AMER. > 60 ML/MIN (>=60 (CALC)); POTASSIUM 3.7 mmol/l (3.5-5.1); SGOT/AST 58 u/l (9-36); SODIUM 137 mmol/l (137-146); TOTAL PROTEIN 5.9 g/dL (6.3-8.2)
[2020-12-01 05:31] LABS: CARBON DIOXIDE 28 mmol/l (22-30)
--- NOTE | 2020-12-01 06:40 | NUR ---
PATIENT'S FINGERSTICK GLUCOSE THIS A.M. IS 67. PATIENT ASYMPTOMATIC FOR HYPOGLYCEMIA. 8 OZ ORANGE JUICE AND TWO PACKS MAGGY CRACKERS GIVEN.
[2020-12-01 08:00] VITALS: BP 130/47; BP 131/63
--- NOTE | 2020-12-01 08:00 | NUR ---
PATIENT AWAKE AND ORIENTED
[2020-12-01 10:38] VITALS: BP 131/63
--- NOTE | 2020-12-01 12:00 | NUR ---
PATIENT AWAKE AND ALERT AND SITTING BEDSIDE
--- NOTE | 2020-12-01 16:00 | NUR ---
PATIENT AWAKE AND ALERT. NO COMPLAINTS OR CONCERNS
[2020-12-01 17:42] VITALS: BP 146/66
--- NOTE | 2020-12-01 18:17 | NUR ---
PATIENT TRANSFERRED TO ICU
--- NOTE | 2020-12-01 19:18 | NUR ---
PATIENT AWAKE ALERT AND ORIENTED X3. ABLE TO MAKE NEEDS KNOWN. RESPIRATIONS LABORED AT THIS TIME D/T UP TO BSC. O2 VIA N/C IN PLACE. LUNGS CLEAR EXCEPT LLL CRACKLES. ON TELEMETRY. BS+. PEDAL PULSES PALPABLE B/L. FALL PRECAUTIONS MAINTAINED. PATIENT REPORTS CONTINUALLY FEELING A LITTLE BETTER EVERY DAY. BED IN LOW POSITION. CALL LIGHT WITHIN REACH.
[2020-12-01 20:00] VITALS: BP 148/66
--- NOTE | 2020-12-01 21:39 | NUR ---
PATIENT RECEIVED EVENING MEDICATIONS. LISPRO INITIALLY 7 UNITS WAS REDUCED TO 4 UNITS PER PT REQUEST D/T HAVING LOW SUGARS IN THE A.M. TYLENOL GIVEN FOR GENERAL DISCOMFORT D/T BED. PATIENT CURRENTLY RESTING WITH EYES CLOSED. RESPIRATIONS UNLABORED. FALL PRECAUTIONS MAINTAINED.
[2020-12-02] VITALS (7 sets, daily range): BP systolic 141–183; BP diastolic 55–82
[2020-12-02 04:32] LABS: HEMATOCRIT 31.3 % (37.0-47.0); HEMOGLOBIN 10.3 g/dl (12.0-16.0); IMMATURE GRANULOCYTES 5.3 % (0.0-5.0); MEAN CELL VOLUME 81.7 fL CALC (80.0-100.0); MEAN CORPUSCULAR HGB 26.9 pG CALC (26.0-32.0); MEAN CORPUSCULAR HGB CONC 32.9 g/dL CAL (32.0-36.0); NEUT# 7.03 thou/uL (2.00-7.15); RED BLOOD COUNT 3.83 mill/uL (4.20-5.60); RED CELL DISTRI WIDTH 13.1 % (11.5-15.5)
[2020-12-02 04:44] LABS: ALBUMIN 3.1 g/dL (3.2-5.0); ALKALINE PHOSPHATASE 152 u/l (38-126); ANION GAP 9 (6-22 (CALC)); BUN 14 mg/dL (8-23); BUN/CREATININE RATIO 25 (12-20 (CALC)); CARBON DIOXIDE 29 mmol/l (22-30); CHLORIDE 101 mmol/l (95-108); CREATININE 0.6 mg/dL (0.5-1.0); GFR > 60 ML/MIN (>=60 (CALC)); GFR FOR AFR.AMER. > 60 ML/MIN (>=60 (CALC)); POTASSIUM 4.1 mmol/l (3.5-5.1); SGOT/AST 46 u/l (9-36); SODIUM 135 mmol/l (137-146)
--- NOTE | 2020-12-02 05:27 | NUR ---
PATIENT'S B/P ELEVATED FOR 0400 VITAL SIGNS. RECHECKED, 179/81, 0900 LISINOPRIL 20MG WAS GIVEN EARLY FOR HTN. XANAX ALSO GIVEN. PATIENT REPORTED FEELING ANXIOUS. FALL PRECAUTIONS MAINTAINED. BED IN LOW POSITION. CALL LIGHT WITHIN REACH.
--- NOTE | 2020-12-02 07:07 | NUR ---
REPORT REC FROM Yelitza BLAIR RN. PT SLEEPING IN BED. NO DISTRESS NOTED.
--- NOTE | 2020-12-02 08:11 | NUR ---
PT SITTING IN BED EATING BREAKFAST. A&O X4. NO DISTRESS NOTED. O2 CURRENTLY AT 2L SUSTAINING 98-100%. O2 TITRATED DOWN TO 1L, O2 CONTINUOUSLY BEING MONITORED FOR ANY SUPPLEMENTAL OXYGENATION NEEDS. CLEAR/DIMINISHED BREATH SOUNDS HEARD UPON AUSCULTATION. ACTIVE BOWEL SOUNDS X4 QUADRANTS. IS DEVICE AT BEDSIDE, PT CURRENTLY ACHIEVING 750ML X8 REPITITIONS, GOAL SET AT 1000 ML, PT DEMONSTRATING PROPER USE OF DEVICE, ENCOURAGED PT TO USE IS DEVICE X10 TIMES Q1HR WHILE AWAKE PT VERBALIZED UNDERSTANDING. PT HYPERTENSIVE LAST NIGHT/EARLY THIS MORNING, A CINTHIA VILLAREAL NOTIFIED, ORDER OBTAINED FOR PRN APRESOLINE , PT EDUCATED ON MEDICATION AND ITS USES, PT AGREEABLE TO PLAN. MANUAL BP OBTAINED 150/80 RESULTS GIVEN TO A CINTHIA BAEZN. ASSESSMENT COMPLETED. DISCUSSED POC. CALL LIGHT WITHIN REACH. DISCUSSED/ENCOURAGED PT IMPORTANCE OF GETTING OOB, EXPLAINED TO PT THAT RECLINER WOULD BE BROUGHT INTO ROOM AND GOAL WAS TO DECREASE WEAKNESS, PT AGREEABLE TO PLAN.
--- NOTE | 2020-12-02 08:40 | NUR ---
DR DE LA GARZA AND Pedro Luis VICENTE APRN AT BEDSIDE DISCUSSING POC
--- NOTE | 2020-12-02 08:47 | NUR ---
DR DE LA GARZA AND Pedro Luis VICENTE APRN AT BEDSIDE DISCUSSINC POC & D/C PLANNING
--- NOTE | 2020-12-02 11:36 | NUR ---
PT SITTING IN RECLINER EATING LUNCH. NO NEEDS AT THIS TIME. CALL LIGHT AND PERSONAL BELONGINGS WITHIN REACH.
--- NOTE | 2020-12-02 13:54 | NUR ---
PT SITTING IN RECLINER, CURRENTLY WEANED OFF OF THE SUPPLEMENTAL NC OXYGEN. CURRENTLY ON ROOM AIR SUSTAINING 98%-100%. , O2 CONTINUOUSLY BEING MONITORED. NO NEEDS AT THIS TIME. CALL LIGHT WITHIN REACH.
--- NOTE | 2020-12-02 15:28 | NUR ---
MANUAL BP TAKEN 170/82 , APRESOLINE 10 MG IV ADMINISTERED. BP TO BE REASSESSED CALL LIGHT WITHIN REACH.
--- NOTE | 2020-12-02 17:11 | NUR ---
PT READING HYPERTENSIVE ON MONITOR, BP TAKEN MANUALLY. BP 160/80, PT REPORTS FEELING SLIGHTLY ANXIOUS, PRN XANAX GIVEN. PT REMAINS ON ROOM AIR SUSTAINING 98%. NO DISTRESS. BP TO BE REASSESSED. CALL LIGHT WITHIN REACH.
--- NOTE | 2020-12-02 18:32 | NUR ---
BP MANUALLY ASSESSED. SLIGHTLY IMPROVING 152/80. NO OTHER NEEDS AT THIS TIME. O2 VIA ROOM AIR SUSTAINING 98%, PT DENIES ANY SOB OR DISCOMFORT. CALL LIGHT WITHIN REACH.
--- NOTE | 2020-12-02 19:46 | NUR ---
RECEIVED REPORT FROM NURSE YASMINE, ASSUMED PATIENT CARE, CURRENTLY RESTING IN BED, EYES CLOSED, BREATHING EVEN UNLABORED, ON HIGH FOWLERS POSITION, CALL LIGHT AT REACH.
--- NOTE | 2020-12-02 20:00 | NUR ---
PATIENT ALERT ORIENTED ABLE TO MAKE NEEDS KNOWN, WITH ONGOING IV OF NORMAL SALINE @ 75CC/HR G22, REMAINS ON TELEMETRY SB 59, BREATHING UNLABORED,LUNG SOUNDS CLEAR/DIMINISHE, OCCASIONAL NON PRODUCTIVE COUGH, LAST BM 6/2 REFUSED TO TAKE LAXATIVE, STATED SHE IS NON EATING AND STATED THAT SHE WILL WAIT, EDUCATED ON THE USED OF THE INCENTIVE SPIROMETER AND PERFORMED INSPIRATORY VOULUME 1000, REQUESTED HER BENADRYL AND TYLENOL, WILL CONTINUE TO MONITOR.
[2020-12-03] VITALS (8 sets, daily range): BP systolic 144–174; BP diastolic 65–77
--- NOTE | 2020-12-03 00:21 | NUR ---
PATIENT RESTING IN BED EYES CLOSED, BREATHING UNLABORED CALL LIGHT AT REACH.
--- NOTE | 2020-12-03 03:40 | NUR ---
PATIENT AWAKE AT THIS TIME, BREATHING EVEN AND UNLABORED, DENIES PAIN, PATIENT WENT BACK TO SLEEP, CALL LIGHT AT REACH.
--- NOTE | 2020-12-03 04:56 | NUR ---
PATIENT STATED IS SHAKY AND REQUESTED TO HAVE HER BLOOD SUGAR CHECK, BS 70 MG/DL, ORANGE JUICE PROVIDED, TURKEY SANDWICH EATEN TOGETHER WITH FRUIT BAR.WILL CONTINUE TO MONITOR.
[2020-12-03 05:07] LABS: HEMATOCRIT 33.6 % (37.0-47.0); HEMOGLOBIN 10.8 g/dl (12.0-16.0); MEAN CELL VOLUME 82.6 fL CALC (80.0-100.0); MEAN CORPUSCULAR HGB 26.5 pG CALC (26.0-32.0); MEAN CORPUSCULAR HGB CONC 32.1 g/dL CAL (32.0-36.0); NEUT# 5.32 thou/uL (2.00-7.15); RED BLOOD COUNT 4.07 mill/uL (4.20-5.60); RED CELL DISTRI WIDTH 13.1 % (11.5-15.5)
[2020-12-03 05:18] LABS: IMMATURE GRANULOCYTES 7.5 % (0.0-5.0)
[2020-12-03 05:25] LABS: ALBUMIN 3.2 g/dL (3.2-5.0); ALKALINE PHOSPHATASE 167 u/l (38-126); ANION GAP 11 (6-22 (CALC)); BUN 15 mg/dL (8-23); BUN/CREATININE RATIO 25 (12-20 (CALC)); CARBON DIOXIDE 28 mmol/l (22-30); CHLORIDE 102 mmol/l (95-108); CREATININE 0.6 mg/dL (0.5-1.0); GFR > 60 ML/MIN (>=60 (CALC)); GFR FOR AFR.AMER. > 60 ML/MIN (>=60 (CALC)); POTASSIUM 3.5 mmol/l (3.5-5.1); SGOT/AST 51 u/l (9-36); SODIUM 138 mmol/l (137-146); TOTAL PROTEIN 6.2 g/dL (6.3-8.2)
[2020-12-03 05:26] LABS: BILIRUBIN, TOTAL 0.1 mg/dL (0.0-1.4)
--- NOTE | 2020-12-03 07:00 | NUR ---
RECIEVED REPORT FROM SHANEL RIVERA
--- NOTE | 2020-12-03 07:56 | NUR ---
PT TRANSFERED TO [facility] ROOM 281 VIA WHEECLAHIR IN STABLE CONDITION. PT IS A/O X3. ASSESSMENT AND VITALS COMPLETED. BP 174/76, HR 68, O2 99% ON ROOM AIR., RESPIRATIONS ARE EVEN ANS UNLABORED. LUNG SOUNDS ARE CLEAR. HEART RHYTHM NORMAL.TELE MONITORING APPLIED. BOWEL SOUNDS ARE ACTIVE. LAST REPORTED BM 11/28/20. RADIAL AND PEDAL PULSES ARE STRONG.#22G IN RW INFUSING WITH IVF PER ORDER. SKIN INTACT. HEATED BLANKET PROVIDED.PT C/O OF 8/10 BACK PAIN. PT TO BE MEDICATED PER EMAR. PT DENIES OF ANY OTHER PAIN SOR NEEDS AT THIS TIME. ALL SAFETY PRECAUTIONS ARE IN PLACE WITH CALL LIGHT IN REACH. WILL CONTINUE TO MONITOR.
--- NOTE | 2020-12-03 10:04 | NUR ---
#22G IN RW CLOGGED. ATTEMPOTED TO START NEW IV X2. FAILED. HOWARD RN TO ATTEMPT. XANAX ADMINISTERED. PT TOELRATED WELL. WELL SAFTEY PRECAUTIONS ARE IN POLACE WTH CALL LIGHT IN REACH. WILL CONTINUE TO MONITOR.
--- NOTE | 2020-12-03 11:05 | NUR ---
NEW #20G RW STARTED BY SHANEL AMAYA. SITE REMAINS HEALTHY AND PATENT.
--- NOTE | 2020-12-03 12:39 | NUR ---
PT RESTING IN SEMI FOWLERS POSITION. PT REMAINS A/O X3. #20G IN LW REMAINS INFUSING WITH IV ANTIBIOTICS, SITE REMAINS HEALTHY AND PATENT.TELE MONITORING IN PLACE. PT CONTINUES TO C/O OF 8/10 PAIN IN BACK. PT TO BE MEDICATED WITH ULTRAM PER ORDER. PT DENIES OF ANY OTHER NEEDS.ALL SAFETY PRECAUTIONS ARE IN PLACE WITH CALL LIGHT IN REACH. WILL CONTINUE TO MONITOR.
--- NOTE | 2020-12-03 13:07 | NUR ---
REASSESSMENT OF BP RESULTING IN 161/68, HR 77. SCHEDULED BP MEDICATIONS ADMINISTERED. PT TOLERATED WELL. WILL CONTINUE TO MONITOR.
--- NOTE | 2020-12-03 15:59 | NUR ---
REPORTED BP OF 172/73. REASSESSMENT OF BP AT THIS TIME. RESULTING IN 162/75, HR 74. RESPIRATIONS ARE EVEN AND UNLABORED WITH NO DISTRESS NOTED. #20G RW REMAINS INFUSING WITH IVF PER ORDER, SITE REMAINS HEALTHY AND PATENT.TELE MONITORING IN PLACE. PT DENIES OF ANY ANY NEEDS AT THIS TIME. ALL SAFETY PRECAUTIONS ARE IN PLACE WITH CALL LIGHT IN REACH. WILL CONTINUE TO MONITOR.
--- NOTE | 2020-12-03 17:22 | NUR ---
NO REPORT OF BM. OFFERED SOMETHING TO ASSIST ONCE AGAIN. PT REFUSED STATING THIS IS HER NORMAL.
--- NOTE | 2020-12-03 19:00 | NUR ---
RECEIVED REPORT FROM NURSE ALAS, PATIENT APPEARS TO BE SLEEPING WITH EYES CLOSED BREATHING EVEN UNLABORED CALL LIGHT AT REACH.
--- NOTE | 2020-12-03 20:00 | NUR ---
PATIENT ALERT ORINETED ABLE TO MAKE NEEDS KNONW, WITH ONGOING IV OF NORMAL SALINE ON RT WRIST G20 @ 75 CC/HR INFUSING WELL, REMAINS ON TELEMETRY SR 77, LBM 6/2, NON PRODUCTIVE COUGH, C/O BACK PAIN STATED FROM " ARTHRITIS", WILL MEDICATE, ACTIVE BOWEL SOUNDS, LBM 6/2, REFUSED TO TAKE LAXATIVE OR PRUNE JUICE, STATED WILL WAIT, RESIDENT REMAINS ON AIR/CONTACT PRECAUTION R/T COVID 19, PERFORMED THE USE OF INCENTIVE SPIROMETER INSPIRATORY VOLUME 1000, CALL LIGHT AT REACH.
--- NOTE | 2020-12-03 23:40 | NUR ---
PATIENT RESTING IN BED, EYES CLOSED, BREATGING EVEN UNLABORED, NO DISCOMFORTS NOTED AT THIS TIME, CALL LIGHT AT REACH.
[2020-12-04] VITALS: BP 128/62
--- NOTE | 2020-12-04 03:54 | NUR ---
PATIENT RESTING IN BED EYES CLOSED, BREATHING EVEN AND UNLABORED, NO DISCOMFORTS NOTED AT THIS TIME, CALL LIGHT AT [facility].
[2020-12-04 04:00] VITALS: BP 150/74
[2020-12-04 08:15] VITALS: BP 149/67
--- NOTE | 2020-12-04 08:15 | NUR ---
REPORT REC FROM Marlene REYES RN. PT SITTING IN BED EATING BREAKFAST. A&O X4. NO DISTRESS NOTED. PT CONTINUES TO BE ON ROOM AIR SUSTAINING 96%, PT REPORTS IMPROVEMENT WITH HER EXERTIONAL SOB, DENIES ANY SOB. CLEAR BREATH SOUNDS UPON AUSCULTATION. IS DEVICE AT BEDSIDE, IMPROVEMENT NOTED, PT ABLE TO ACHIEVE 1250 ML X8 REPITIONS, GOAL SET AT 1500 ML, PT DEMONSTRATING PROPER USE OF DEVICE. REFINERY OPERATOR IN PLACE. NO BM SINCE 11/28, PT OFFERED TO GET ORDER FOR A STOOL SOFTENER, PT REFUSING AT THIS TIME.ACTIVE BOWEL SOUNDS X4 QUADRANTS. IV HEALTHY AND PATENT WITH IVF INFUSING PER MAR ORDERS. ASSESSMENT COMPLETED. DISCUSSED POC. ISOLATION PRECAUTIONS IN PLACE. CALL LIGHT AND PERSONAL BELONGINGS WITHIN REACH.
[2020-12-04 10:20] VITALS: BP 147/61
[2020-12-04] MEDS ORDERED: ZITHROMAX250 MG PO (12:07)
[2020-12-04] MEDS ORDERED: TRAMADOL HCL PO (12:08)
[2020-12-04] MEDS ORDERED: DECADRON6 MG PO (12:08)
--- NOTE | 2020-12-04 14:42 | NUR ---
ISABEL RT AT BEDSIDE COMPLETING 6 MIN WALK TEST PRIOR TO D/C
--- NOTE | 2020-12-04 14:53 | NUR ---
NO OXYGEN NEEDED. RESULTS FROM 6 MIN WALK TEST WERE WITH A FINAL RESTING O2 OF 96%.
--- NOTE | 2020-12-04 15:08 | NUR ---
PT D/C INSTRUCTIONS GIVEN. IV INTACT UPON REMOVAL
--- NOTE | 2020-12-04 16:05 | NUR ---
Discharge instructions given. Patient verbalizes understanding of same. Discharged in stable condition via wheelchair to home with staff. All belongings sent with pt. Pt encouraged to return for new or worsening symptoms.
--- NOTE | 2020-12-06 09:35 | NUR ---
Pneumonia post discharge follow up call completed today, 12/06/20. Pt. states she is doing well, but still weak. No fever, chills, or SOB. Pt. is taking prescribed medications without issue. No follow up appt has been scheduled yet, but pt states she will do so soon. No questions or concerns voiced by patient.
== END 2020-12-04 15:34 | disposition home or self-care (01) | DRG 177 ==
LOC: ED 09:10 → ED-I 11:10 → ED 11:40 → MS2 11:41 → ICU 12-01 17:33 → MS2 12-03 08:35
PROVIDERS: Emergency Medicine; Nurse Practitioner; Nurse Practitioner Family; ADMIT Internal Medicine; ATTEND Internal Medicine
PROC: XW033E5 Introduction of Remdesivir Anti-infective into Peripheral Vein, Percutaneous Approach, New Technology Group 5 (ICD-10-PCS; principal; 2020-11-29)
DX: U07.1 COVID-19 (principal); J12.82 Pneumonia due to coronavirus disease 2019; R09.02 Hypoxemia; E11.9 Type 2 diabetes mellitus without complications; I10 Essential (primary) hypertension; F32.9 Major depressive disorder, single episode, unspecified; K21.9 Gastro-esophageal reflux disease without esophagitis; F41.1 Generalized anxiety disorder; G25.81 Restless legs syndrome; M54.9 Dorsalgia, unspecified; G89.29 Other chronic pain; Z79.4 Long term (current) use of insulin
CPT/HCPCS: J1650